=== PATIENT | female | born 1985 | race Caucasian/White ===

== ENCOUNTER → 2016-10-08 | Outpatient (CLI) | payer OTHER ==
[2016-10-08 11:34] LABS: HEMATOCRIT 40.9 % (37.0-47.0); HEMOGLOBIN 13.3 g/dL (12.0-16.0); RED BLOOD COUNT 4.43 10^6/uL (4.20-5.40)
[2016-10-08 11:35] LABS: MEAN CORPUSCULAR HGB CONC 32.5 g/dL (33-37); MEAN CORPUSCULAR VOLUME 92.3 FL (81-99); MEAN PLATELET VOLUME 10.2 FL (7.4-12.2)
[2016-10-08 12:32] LABS: VITAMIN D 25-HYDROXY 34.3 NG/ML (30-100)
[2016-10-08 13:53] LABS: FERRITIN 80.5 ng/mL (12.00-336.70)
== END ==
LOC: MOB LAB 10:05
PROVIDERS: ATTEND Student in an Organized Health Care Education/Training Program
DX: R63.5 Abnormal weight gain (principal); E55.9 Vitamin D deficiency, unspecified; E61.1 Iron deficiency; F32.9 Major depressive disorder, single episode, unspecified
CPT/HCPCS: 36415; 82306; 82728; 84443; 85027